=== PATIENT | female | born 1990 | race Caucasian/White ===

== ENCOUNTER 2016-12-20 22:15 | Emergency (ER) | payer MEDICAID ==
--- NOTE | 2016-12-20 23:09 | ER Document Report ---
ED GI/ - General Chief Complaint: Nausea/Vomiting/Diarrhea Stated Complaint: ABDOMINAL PAIN,VOMITING Time seen by provider: 23:09 Mode of Arrival: Ambulatory Information source: Patient Notes: 26 yo female with 6 hours of frequent vomiting and diarrhea. Sudden onset. Kids had brief episodes earlier in the day. Unable to keep anything down. Hx chornic neck and back pain due to taruma and surgeries. Has not run out of her meds , takes 1/2 10mg hydrocodone prn. (4-7 times per day). generalized abdominal pain. Very dehydrated. TRAVEL OUTSIDE OF THE [place] IN LAST 30 DAYS: No - Related Data Allergies/Adverse Reactions: morphine [Morphine] Allergy (Intermediate, Verified 12/20/16 22:46) convulsions diphenhydramine HCl [From Benadryl] Allergy (Mild, Verified 12/20/16 22:46) drowsiness meperidine HCl [From Demerol] Allergy (Mild, Verified 12/20/16 22:46) panic attacks nalbuphine HCl [From Nubain] Allergy (Mild, Verified 12/20/16 22:46) Hallucinations promethazine HCl [From Phenergan] Allergy (Mild, Verified 12/20/16 22:46) nervousness propoxyphene napsylate [From Darvocet-N 100] Allergy (Mild, Verified 12/20/16 22 :46) panic attacks ibuprofen [From Motrin] Allergy (Verified 12/20/16 22:46) tramadol [Tramadol] Allergy (Verified 12/20/16 22:46) nitrofurantoin [From Macrobid] Adverse Reaction (Verified 12/20/16 22:46) VOMITING nitrofurantoin macrocrystalline [From Macrobid] Adverse Reaction (Verified 12/20 22:46) VOMITING Past Medical History - General Information source: Patient - Social History Smoking Status: Current Every Day Smoker Chew tobacco use (# tins/day): No Frequency of alcohol use: None Drug Abuse: None Lives with: Spouse/Significant other Family History: Reviewed & Not Pertinent Endocrine Medical History: Reports: Hx Hypothyroidism Renal/ Medical History: Reports: Hx Ovarian Cysts. Denies: Hx Peritoneal Dialysis Musculoskeltal Medical History: Reports Hx Arthritis, Reports Hx Fibromyalgia, Reports Hx Musculoskeletal Trauma Psychiatric Medical History: Reports: Hx Depression Past Surgical History: Reports: Hx Orthopedic Surgery - Immunizations Immunizations up to date: Yes Hx Diphtheria, Pertussis, Tetanus Vaccination: Yes - 2009 Review of Systems - Review of Systems Constitutional: No symptoms reported EENT: No symptoms reported Cardiovascular: No symptoms reported Respiratory: No symptoms reported Gastrointestinal: See HPI Genitourinary: No symptoms reported Female Genitourinary: No symptoms reported Musculoskeletal: No symptoms reported Skin: No symptoms reported Hematologic/Lymphatic: No symptoms reported Neurological/Psychological: No symptoms reported Physical Exam - Vital signs Vitals: Pulse Resp BP Pulse Ox 141 H 16 98/65 L 96 12/20/16 22:41 12/20/16 22:41 12/20/16 22:41 12/20/16 22:41 Interpretation: Tachycardic - General General appearance: Alert - HEENT Head: Normocephalic, Atraumatic Eyes: Normal Conjunctiva: Normal Pupils: PERRL Tympanic membrane: Normal Mouth/Lips: Normal Mucous membranes: Dry Pharynx: Normal Neck: Supple - Respiratory Respiratory status: No respiratory distress Chest status: Nontender Breath sounds: Normal Chest palpation: Normal - Cardiovascular Rhythm: Regular Heart sounds: Normal auscultation Murmur: No - Abdominal Inspection: Normal Distension: No distension Bowel sounds: Normal Tenderness: Tender - diffuse, mild Organomegaly: No organomegaly - Back Back: Normal, Nontender. No: CVA tenderness - Extremities General upper extremity: Normal inspection, Nontender, Normal color, Normal ROM , Normal temperature General lower extremity: Normal inspection, Nontender, Normal color, Normal ROM , Normal temperature, Normal weight bearing. No: Christen's sign - Neurological Neuro grossly intact: Yes Cognition: Normal Orientation: AAOx4 [place] Coma Scale Eye Opening: Spontaneous [place] Coma Scale Verbal: Oriented [place] Coma Scale Motor: Obeys Commands [place] Coma Scale Total: 15 Speech: Normal Motor strength normal: LUE, RUE, LLE, RLE Sensory: Normal - Psychological Associated symptoms: Normal affect, Normal mood - Skin Skin Temperature: Warm Skin Moisture: Dry Skin Color: Normal Skin irregularity: negative: Rash Course - Re-evaluation Re-evalutation: 12/21/16 05:[address] saldana at this point, 3 liters in poulse 120-135. another diarrhea stool, looking better but still no urine sample. nurse will have to start another IV, it infiltrated to infuse the 4th liter. stool sample sent to the lab 12/21/16 06:26 Aries has taken 2 1/2 of her 10mg hydrocodone while she has been in ER for her chronic neck and back pain. No vomiting. pulse down to [address] saldana was ok with pt going home. pt abdomen much less tender, soft. generalized light tenderness throughout. 12/21/16 06:27 stool for hem positive. pt has had 2 diarrhea stools in ER. 12/21/16 07:20 C. difficile is negative., keeping po's down. - Vital Signs Vital signs: Temp Pulse Resp BP Pulse Ox 98.6 F 141 H 45 H 90/50 L 97 12/21/16 08:00 12/20/16 22:41 12/21/16 07:00 12/21/16 08:01 12/21/16 07:00 - Laboratory Result Diagrams: 12/20/16 23:10 12/20/16 23:10 Laboratory results interpreted by me: 12/20/16 12/20/16 23:10 23:10 RBC 5.31 H Hgb 16.8 H Hct 49.4 H Seg Neuts % (Manual) 88 H Lymphocytes % (Manual) 6 L Monocytes % (Manual) 2 L Carbon Dioxide 21 L Glucose 117 H Magnesium 1.5 L Discharge - Discharge Clinical Impression: Vomiting and diarrhea, microscopic blood in stool, dehydration Condition: Good Disposition: HOME, SELF-CARE Instructions: Intravenous (IV) Fluids ([facility]), Vomiting ([facility]), Diarrhea, Nonspecific ([facility]), Dehydration ([facility]) Additional Instructions: see your doctor for follow up tomorrow to er if worse advance diet as tolerated, eat some yogurt to replace the intestional normal bacteria-probiotic Please complete the patient satisfaction survey if you get one, and return it.. If you do not receive a survey, then you can go to the [facility] website, [email or web address] and place your comments about your very good care. Thank you very much. It was a pleasure being your medical provider today. Forms: Return to Work Referrals: REECE BOX MD [Primary Care Provider] - 12/22/16
[2016-12-20] MEDS ORDERED: NORMAL SALINE 1000 ML 2,000 ML IV ONE (23:10)
[2016-12-20] MEDS ORDERED: ONDANSETRON HCL INJ/PF 4 MG/2 ML SDV IV ONE (23:20)
[2016-12-20 23:22] LABS: HEMATOCRIT 49.4 % (36.0-47.0); HEMOGLOBIN 16.8 g/dL (12.0-15.5); MEAN CORPUSCULAR HEMOGLOBIN 31.7 pg (27.0-33.4); MEAN CORPUSCULAR HGB CONC 34.1 g/dL (32.0-36.0); MEAN CORPUSCULAR VOLUME 93 fl (80-97); RED BLOOD COUNT 5.31 10^6/uL (3.72-5.28); RED CELL DISTRIBUTION WIDTH 12.3 % (11.5-14.0); WHITE BLOOD COUNT 7.5 10^3/uL (4.0-10.5)
[2016-12-20 23:39] LABS: ALANINE AMINOTRANSFERASE 26 U/L (9-52); ALBUMIN 4.5 g/dL (3.5-5.0); ALKALINE PHOSPHATASE 68 U/L (38-126); ANION GAP 13 (5-19); ASPARTATE AMINO TRANSFERASE 23 U/L (14-36); BILIRUBIN,TOTAL 0.9 mg/dL (0.2-1.3); BLOOD UREA NITROGEN 20 mg/dL (7-20); CALCIUM 10.1 mg/dL (8.4-10.2); CARBON DIOXIDE 21 mmol/L (22-30); CHLORIDE 107 mmol/L (98-107); CREATININE RESULT 0.88 mg/dL (0.52-1.25); GLUCOSE 117 mg/dL (75-110); LIPASE 48.2 U/L (23-300); MAGNESIUM 1.5 mg/dL (1.6-2.3); POTASSIUM 4.7 mmol/L (3.6-5.0); SODIUM 141.4 mmol/L (137-145); TOTAL PROTEIN 7.7 g/dL (6.3-8.2)
[2016-12-20 23:45] LABS: BAND NEUTROPHILS % (MANUAL) 3 % (3-5); BASOPHILS % (MANUAL) 0 % (0-2); EOSINOPHILS % (MANUAL) 0 % (0-6); LYMPHOCYTES % (MANUAL) 6 % (13-45); TOTAL CELLS COUNTED 100
[2016-12-20 23:47] LABS: RBC MORPHOLOGY COMMENT NORMO-CYTIC/CHROMIC; TOXIC GRANULATION 1+; TOXIC VACUOLATION PRESENT
[2016-12-21] MEDS ORDERED: LOPERAMIDE HCL 2 MG CAPSULE PO ONE (00:28)
[2016-12-21] MEDS ORDERED: NORMAL SALINE 1000 ML 1,000 ML IV ONE ×2 (00:28→02:34)
[2016-12-21] MEDS ORDERED: ONDANSETRON HCL INJ/PF 4 MG/2 ML SDV IV ONE (07:29)
[2016-12-21 08:02] VITALS: BP 90/50
== END 2016-12-21 08:38 | disposition home or self-care (01) ==
LOC: ER 22:15
DX: R11.2 Nausea with vomiting, unspecified (principal); R19.7 Diarrhea, unspecified; E86.0 Dehydration; K92.1 Melena; R10.84 Generalized abdominal pain; F17.200 Nicotine dependence, unspecified, uncomplicated; G89.21 Chronic pain due to trauma; M54.9 Dorsalgia, unspecified; M54.2 Cervicalgia; E03.9 Hypothyroidism, unspecified; Z88.3 Allergy status to other anti-infective agents; Z88.6 Allergy status to analgesic agent
CPT/HCPCS: 96376; 99284; 96361; 96374; 36415; 87045; 87205; 87209; 83690; 83735; 87177; 84703; 85025; 82272; 80053; 87493 ×2; J3490; J2405 ×2; J7030 ×2

== ENCOUNTER 2017-04-24 23:23 | Emergency (ER) | payer MEDICAID ==
--- NOTE | 2017-04-25 02:46 | ER Document Report ---
ED General - General Chief Complaint: Finger Injury Stated Complaint: FINGER IMPALMENT RIGHT HAND MIDDLE FINGER Time Seen by Provider: 04/25/17 01:48 Notes: Patient is a 26-year-old female who presents with a injury to her right third digit. She did and pelvis digit with a sewing needle just prior to arrival. She notes a constant, throbbing, aching pain to the affected area. Nothing improves or worsens the pain. No history of similar injury in the past. She is uncertain of the last tetanus shot which she received. She has not seen a primary care doctor regarding today's concerns. Denies any weakness or numbness to the affected area. TRAVEL OUTSIDE OF THE [place] IN LAST 30 DAYS: No - Related Data Allergies/Adverse Reactions: morphine [Morphine] Allergy (Intermediate, Verified 04/25/17 01:06) convulsions diphenhydramine HCl [From Benadryl] Allergy (Mild, Verified 04/25/17 01:06) drowsiness meperidine HCl [From Demerol] Allergy (Mild, Verified 04/25/17 01:06) panic attacks nalbuphine HCl [From Nubain] Allergy (Mild, Verified 04/25/17 01:06) Hallucinations promethazine HCl [From Phenergan] Allergy (Mild, Verified 04/25/17 01:06) nervousness propoxyphene napsylate [From Darvocet-N 100] Allergy (Mild, Verified 04/25/17 01 :06) panic attacks ibuprofen [From Motrin] Allergy (Verified 04/25/17 01:06) tramadol [Tramadol] Allergy (Verified 04/25/17 01:06) nitrofurantoin [From Macrobid] Adverse Reaction (Verified 04/25/17 01:06) VOMITING nitrofurantoin macrocrystalline [From Macrobid] Adverse Reaction (Verified 04/25 01:06) VOMITING Past Medical History - General Information source: Patient - Social History Smoking Status: Current Every Day Smoker Chew tobacco use (# tins/day): No Frequency of alcohol use: None Drug Abuse: None Lives with: Spouse/Significant other Family History: Reviewed & Not Pertinent Endocrine Medical History: Reports: Hx Hypothyroidism Renal/ Medical History: Reports: Hx Ovarian Cysts. Denies: Hx Peritoneal Dialysis Musculoskeltal Medical History: Reports Hx Arthritis, Reports Hx Fibromyalgia, Reports Hx Musculoskeletal Trauma Psychiatric Medical History: Reports: Hx Depression Past Surgical History: Reports: Hx Orthopedic Surgery - Immunizations Immunizations up to date: Yes Hx Diphtheria, Pertussis, Tetanus Vaccination: Yes - 2009 Review of Systems - Review of Systems Notes: Constitutional: Negative for fever. Eyes: Negative for visual changes. ENT: Negative for facial injury Cardiovascular: Negative for chest injury. Respiratory: Negative for shortness of breath. Gastrointestinal: Negative for abdominal injury. Genitourinary: Negative for genital injury Musculoskeletal: Negative for back injury. Skin: Positive for puncture injury to the right third digit Neurological: Negative for head injury. Physical Exam - Vital signs Vitals: Temp Pulse Resp BP Pulse Ox 98.0 F 90 18 120/75 98 04/25/17 01:04/25/17 01:04/25/17 01:04/25/17 01:04/25/17 01:07 Interpretation: Normal Notes: PHYSICAL EXAMINATION: GENERAL: Well-appearing, well-nourished and in no acute distress. HEAD: Atraumatic, normocephalic. EYES: sclera anicteric, conjunctiva are normal. ENT: Moist mucous membranes. NECK: Normal range of motion LUNGS: Normal work of breathing HEART: 2+ radial pulses bilaterally EXTREMITIES: Sewing needle through the distal tip of the right 3rd digit with violation of the nailbed. NEUROLOGICAL: No focal neurological deficits. Moves all extremities spontaneously and on command. PSYCH: Normal mood, normal affect. SKIN: Warm, Dry, normal turgor, no rashes or lesions noted. Course - Re-evaluation Re-evalutation: 04/25/17 03:18 Patient presents with a sewing needle impaled through her right third digit. A digital block was applied and the same needle was removed. Minimal bleeding thereafter. Tetanus was updated. At this time will discharge with return precautions and follow-up recommendations. Verbal discharge instructions given a the bedside and opportunity for questions given. Medication warnings reviewed. Patient is in agreement with this plan and has verbalized understanding of return precautions and the need for primary care follow-up in the next 24-72 hours. - Vital Signs Vital signs: Temp Pulse Resp BP Pulse Ox 98.0 F 90 18 120/75 98 04/25/17 01:07 04/25/17 01:07 04/25/17 01:07 04/25/17 01:07 04/25/17 01:07 Discharge - Discharge Clinical Impression: Injury of right middle finger Qualifiers: Encounter type: initial encounter Qualified Code(s): S69.91XA - Unspecified injury of right wrist, hand and finger(s), initial encounter Condition: Good Disposition: HOME, SELF-CARE Additional Instructions: Return immediately if you develop spreading redness around the wound, pus from the wound, worsening pain, or a fever of >100.4. Keep the area clean and dry. Wash gently with soap and water twice daily and cover with antibiotic ointment.
[2017-04-25] MEDS ORDERED: DIPH/PERTUSS(ACELL)/TETANUS VAC/PF 0.5 ML SYR (>=10YO) IM ONE (03:15)
[2017-04-25 03:40] VITALS: BP 110/81
== END 2017-04-25 03:10 | disposition home or self-care (01) ==
LOC: ER 23:23
DX: S61.242A Puncture wound with foreign body of right middle finger without damage to nail, initial encounter (principal); W26.8XXA Contact with other sharp object(s), not elsewhere classified, initial encounter; W45.8XXA Other foreign body or object entering through skin, initial encounter; Y93.D2 Activity, sewing
CPT/HCPCS: 90471; 90715; 99283

== ENCOUNTER 2017-04-29 17:04 | Emergency (ER) | payer MEDICAID ==
[2017-04-29] MEDS ORDERED: ONDANSETRON HCL INJ/PF 4 MG/2 ML SDV IV ONE (17:50)
--- NOTE | 2017-04-29 17:50 | ER Document Report ---
ED Headache - General Mode of Arrival: Medic Information source: Patient TRAVEL OUTSIDE OF THE [place] IN LAST 30 DAYS: No - HPI Patient complains to provider of: Headache Associated symptoms: Other - see above - General Chief Complaint: Headache Stated Complaint: HEADACHE Time Seen by Provider: 04/29/17 17:30 Notes: Patient is a 26 year old female who presents to the ED with complaints of a visual disturbance in her left eye and 45 minutes later sudden onset steadily worsening headache. Patient states the pain started on the left side of her head but is now on the right side of her head. Patient states now she is having blurred vision in the left eye due to keeping her eyes closed. Patient states she has had headaches in the past but never to this extent. Patient reports associated nausea and vomiting, and dizziness causing her to feel off balance. Patient states 1 week ago she had a sewing machine needle go through her finger and a couple days ago she was bit by several bugs while outside. Patient has not taken anything for her headache, states she is on prescription oxycodone and has already taken it today. (BERTRAND VELASQUEZ) - Related Data Allergies/Adverse Reactions: morphine [Morphine] Allergy (Intermediate, Verified 04/25/17 01:06) convulsions diphenhydramine HCl [From Benadryl] Allergy (Mild, Verified 04/25/17 01:06) drowsiness meperidine HCl [From Demerol] Allergy (Mild, Verified 04/25/17 01:06) panic attacks nalbuphine HCl [From Nubain] Allergy (Mild, Verified 04/25/17 01:06) Hallucinations promethazine HCl [From Phenergan] Allergy (Mild, Verified 04/25/17 01:06) nervousness propoxyphene napsylate [From Darvocet-N 100] Allergy (Mild, Verified 04/25/17 01 :06) panic attacks ibuprofen [From Motrin] Allergy (Verified 04/25/17 01:06) tramadol [Tramadol] Allergy (Verified 04/25/17 01:06) nitrofurantoin [From Macrobid] Adverse Reaction (Verified 04/25/17 01:06) VOMITING nitrofurantoin macrocrystalline [From Macrobid] Adverse Reaction (Verified 04/25 01:06) VOMITING Past Medical History - General Information source: Patient - Social History Smoking Status: Current Every Day Smoker Chew tobacco use (# tins/day): No Frequency of alcohol use: None Drug Abuse: None Family History: Reviewed & Not Pertinent Endocrine Medical History: Reports: Hx Hypothyroidism Renal/ Medical History: Reports: Hx Ovarian Cysts. Denies: Hx Peritoneal Dialysis Musculoskeltal Medical History: Reports Hx Arthritis, Reports Hx Fibromyalgia, Reports Hx Musculoskeletal Trauma Psychiatric Medical History: Reports: Hx Depression Past Surgical History: Reports: Hx Orthopedic Surgery - spinal - Immunizations Immunizations up to date: Yes Hx Diphtheria, Pertussis, Tetanus Vaccination: Yes - 2009 Review of Systems - Review of Systems Constitutional: No symptoms reported EENT: See HPI, Blurred vision Cardiovascular: No symptoms reported Respiratory: No symptoms reported Gastrointestinal: See HPI, Nausea, Vomiting Genitourinary: No symptoms reported Female Genitourinary: No symptoms reported Musculoskeletal: No symptoms reported Skin: No symptoms reported Hematologic/Lymphatic: No symptoms reported Neurological/Psychological: See HPI, Headaches Physical Exam - HEENT Right intraocular pressure: 15 Left intraocular pressure: 15 - Vital signs Vitals: Temp Pulse Resp BP Pulse Ox 97.4 F 73 16 121/79 99 04/29/17 17:16 04/29/17 17:16 04/29/17 17:16 04/29/17 17:16 04/29/17 17:16 - Notes Notes: GENERAL: Alert, interacts well. Appears uncomfortable. HEAD: Normocephalic, atraumatic. EYES: Pupils equal, round, and reactive to light. Extraocular movements intact. Red reflexes intact in bilateral eyes, fundoscopic exam normal on left eye, photosensitivity. Intraoccular pressure right=15, left=15 ENT: Oral mucosa moist, tongue midline. NECK: Full range of motion. Supple. Trachea midline. LUNGS: Clear to auscultation bilaterally, no wheezes, rales, or rhonchi. No respiratory distress. HEART: Regular rate and rhythm. No murmurs, gallops, or rubs. ABDOMEN: Soft, non-tender. Non-distended. Bowel sounds present in all 4 quadrants. EXTREMITIES: Moves all 4 extremities spontaneously. No edema, radial and dorsalis pedis pulses 2/4 bilaterally. No cyanosis. Puncture wound through and through tip of right 3rd digit, minimal erythema around it with no signs of infection. NEUROLOGICAL: Alert and oriented x3. Normal speech. cranial nerves II through XII grossly intact. Biceps and patellar DTRs 2+ bilaterally. PSYCH: Normal affect, normal mood. SKIN: Warm, dry, normal turgor. (BERTARND VELASQUEZ) Course - Re-evaluation Re-evalutation: 04/29/17 21:24 Patient is feeling much better, agreeable to be discharged to home, no more visual symptoms. Patient will be given prescription for 2 doses of Compazine to use at home should the headache return. Recommended to follow-up with neurology as an outpatient. (HAYLEY PAINTER) - Vital Signs Vital signs: Temp Pulse Resp BP Pulse Ox 98.1 F 93 18 114/70 97 04/29/17 21:48 04/29/17 21:48 04/29/17 21:48 04/29/17 21:48 04/29/17 21:48 Discharge - Discharge Clinical Impression: Ocular migraine Condition: Stable Disposition: HOME, SELF-CARE Instructions: Intravenous Compazine for Headaches ([facility]) Additional Instructions: Should your pain return, you develop more visual changes or you have any other new or concerning symptoms please return to the emergency department. I think you have an ocular migraine. You will need to follow-up with neurology as an outpatient should this return. You may take a repeat dose of Compazine at home should her headache return. Prescriptions: Prochlorperazine Maleate [Compazine 10 mg Tablet] 10 mg PO DAILYP PRN #2 tablet PRN Reason: Forms: Return to Work Scribe Attestation: 04/30/17 00:26 I personally performed the services described in the documentation, reviewed and edited the documentation which was dictated to the scribe in my presence, and it accurately records my words and actions. (HAYLEY PAINTER) Scribe Documentation - Scribe Written by Renata:: renata Higgins, 04/29/2017, [id number] acting as scribe for :: Jamel
[2017-04-29] MEDS ORDERED: NORMAL SALINE 1000 ML 1,000 ML IV ONE (17:52)
[2017-04-29] MEDS ORDERED: KETOROLAC TROMETHAMINE INJ/PF 30 MG/1 ML SDV IV ONE (17:52)
[2017-04-29] MEDS ORDERED: PROCHLORPERAZINE EDISYLATE INJ 10 MG/2 ML VIAL IV ONE (17:52)
[2017-04-29] MEDS ORDERED: PROCHLORPERAZINE EDISYLATE INJ 10 MG/2 ML VIAL IM ONE (21:56)
[2017-04-29 22:06] VITALS: BP 114/70
== END 2017-04-29 22:07 | disposition home or self-care (01) ==
LOC: ER 17:04
DX: G43.809 Other migraine, not intractable, without status migrainosus (principal); H53.8 Other visual disturbances; F17.200 Nicotine dependence, unspecified, uncomplicated
CPT/HCPCS: 99283; 96372; 96361; 96374; 96375; J1885; J0780; J2405; J7030